=== PATIENT | female | born 1960 | race Caucasian/White ===

== ENCOUNTER 2024-06-14 10:48 | Outpatient (CLI) | payer OTHER | END 2024-06-14 10:49 | disposition home or self-care (01) | LOC: CSHCT 10:48 | PROVIDERS: ATTEND Surgery | DX: K43.9 Ventral hernia without obstruction or gangrene (principal); K57.30 Diverticulosis of large intestine without perforation or abscess without bleeding | CPT/HCPCS: 74177; 82565 ==